=== PATIENT | male | born 1995 | race Two or more races ===

== ENCOUNTER 2020-07-20 18:23 | Emergency (ER) | payer OTHER ==
[~2020-07-20] VITALS: Ht 162.6 cm; Wt 59.0 kg
[2020-07-20] MEDS ORDERED: Tetanus/Diptheria/Pertussis IM ONE (18:45)
[2020-07-20] MEDS ORDERED: Bacitracin Oint UD TOPIC ONE (18:45)
[2020-07-20 19:35] VITALS: BP 125/83
--- NOTE | 2020-07-20 20:10 | Emergency Room Report ---
History of Present Illness General Chief Complaint: Laceration Source: Patient Present Illness HPI 25 YO male presents to the ED c/o laceration to the dorsum of the left thumb sustained 30 minutes prior to arrival. Patient reports he was cutting some cheese when he accidentally cut himself. Patient reports this was unintentional. He denies taking blood thinning medications. He is not sure when his last tetanus vaccine was. He reports his pain is 7/10 in severity. He denies paresthesias. He reports bleeding has subsided. Patient denies loss of gross motor movements of the affected extremity. He is right-hand dominant. No other aggravating or relieving factors. 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 COVID-19 Screening: Negative COVID-19 COVID-19 Testing Source: unk Patient History Past Medical History: see triage record Past Surgical History: none Pertinent Family History: none Reviewed Nursing Documentation: PMH: Agreed; PSxH: Agreed Nursing Documentation-PMH Past Medical History: No History, Except For Review of Systems All Other Systems: negative except mentioned in HPI Physical Exam Vital Signs Date Time Temp Pulse Resp B/P (MAP) Pulse Ox O2 Delivery O2 Flow Rate FiO2 07/20/20 18:34 98.1 96 20 125/83 (97) 98 Room Air Sp02 EP Interpretation: reviewed, normal General Appearance: no apparent distress, alert, GCS 15, non-toxic Head: normocephalic, atraumatic Eyes: bilateral eye normal inspection, bilateral eye PERRL ENT: hearing grossly normal, normal voice Neck: full range of motion Respiratory: lungs clear, normal breath sounds, speaking full sentences Cardiovascular #1: regular rate, rhythm, normal capillary refill Genitourinary: normal inspection Musculoskeletal: normal range of motion, gait/station normal, non-tender Neurologic: alert, motor strength/tone normal, oriented x3, sensory intact, responsive, speech normal Psychiatric: judgement/insight normal, no suicidal/homicidal ideation Skin: laceration - 1.5 cm laceration dorsum of the left thumb. No visible FB, no tendon involvement, able to fully extend finger against resistance. Lymphatic: no adenopathy Procedures Laceration/Wound Repair Laceration/Wound Repair : Consent: Verbal Wound Location: upper extremity - finger Wound Length (cm): 1 Wound Explored: clean Irrigated w/ Saline (ccs): 200 Anesthesia: 1% Lidocaine Volume Anesthetic (ccs): 2 Wound Repaired With: sutures Suture Size/Type: 4:0 Number of Sutures: 5 Layer Closure?: No Sterile Dressing Applied?: Yes Splint Applied?: Yes Type of Splint Applied: Finger SPlint Sling Applied?: No Patient Tolerated: Well Complications: None Medical Decision Making PA Attestation Dr. Perez is my supervising Physician whom patient management has been discussed with. Diagnostic Impression: Primary Impression: Laceration ER Course 25 YO male presents to the ED c/o laceration to the dorsum of the left thumb sustained 30 minutes prior to arrival. Patient reports he was cutting some cheese when he accidentally cut himself. Patient reports this was unintentional. He denies taking blood thinning medications. He is not sure when his last tetanus vaccine was. He reports his pain is 7/10 in severity. He denies paresthesias. He reports bleeding has subsided. Patient denies loss of gross motor movements of the affected extremity. He is right-hand dominant. No other aggravating or relieving factors. Ddx considered but are not limited to laceration, tendon injury, cellulitis, amputation Vital signs: are WNL, pt. is afebrile H&PE are most consistent with: 1.5 cm laceration to the dorsum of the left first digit. ORDERS: none required at this time, the diagnosis is clinical ED INTERVENTIONS: -Tetanus vaccine was administered as pt. vaccination status was unknown. - The wound was copiously irrigated with normal saline, and explored for foreign body for which no FB was found. - pt. is anesthetized with 1%lidocaine. - The wound was approximated and closed using 5 interrupted 4.0 Ethilon sutures. -Bacitracin and sterile dressing is applied. -left thumb finger splint applied by diet tech. Pt. remains neurovascularly intact. Discussed with patient: That we make every effort to approximate the laceration as best as we can so that scarring will be as cosmetically pleasing as possible with our limited cosmetic skill set in the Emergency dept. Regardless of our best efforts there will be scarring after laceration repair. The extent of scarring is unknown at this time. DISCHARGE: At this time pt. is stable for d/c to home. Will provide printed patient care instructions, and any necessary prescriptions. Care plan and follow up instructions have been discussed with the patient prior to discharge. Last Vital Signs Date Time Temp Pulse Resp B/P (MAP) Pulse Ox O2 Delivery O2 Flow Rate FiO2 07/20/20 19:35 98.1 20 125/83 98 Room Air 07/20/20 18:34 96 Status: improved Disposition: HOME, SELF-CARE Condition: Stable Scripts Acetaminophen* (TYLENOL EXTRA STRENGTH*) 500 Mg Tablet 500 MG ORAL Q6H, #20 TAB 0 Refills Prov: Mayuri Avery 07/20/20 Bacitracin (Bacitracin) 28.4 Gm Oint...g. 1 APPLIC TOPIC DAILY, #28.5 GM Prov: Mayuri Avery 07/20/20 Cephalexin* (KEFLEX*) 500 Mg Capsule 500 MG ORAL EVERY 12 HOURS for 7 Days, #14 CAP 0 Refills Prov: Mayuri Avery 07/20/20 Referrals: [facility] Departure Forms: Return to Work Return to Work Date: Jul 21, 2020 Other Restrictions: Limited use of left thumb, keep clean and dry. wear finger splint. Return to Full Activity: Jul 27, 2020 Work Restrictions: None Patient Instructions: Laceration Care, Adult Additional Instructions: Take medications as directed. Sutures are to be removed in approximately 10 to 12 days. Keep finger clean and dry. Keep finger splint on to promote proper healing. Follow up with a Primary Care Provider in 3-5 days, even if your symptoms have resolved. --Please review list of primary care clinics, if you do not already have a primary care provider Return sooner to ED if new symptoms occur, or current symptoms become worse. - Please note that this Emergency Department Report was dictated using [employer] professor technology software, occasionally this can lead to erroneous entry secondary to interpretation by the dictation equipment. Mayuri Avery Jul 20, 2020 20:09
[2020-07-20] MEDS ORDERED: CEPHALEXIN500 MG ORAL (20:11)
[2020-07-20] MEDS ORDERED: TYLENOL EXTRA500 MG ORAL ×2 (20:11)
[2020-07-20] MEDS ORDERED: BACITRACIN15 GM TOPIC (20:11)
[2020-07-20 20:25] VITALS: BP 125/83
== END 2020-07-20 20:25 | disposition home or self-care (01) ==
LOC: EMR 19:50
DX: S61.012A Laceration without foreign body of left thumb without damage to nail, initial encounter (principal); W26.0XXA Contact with knife, initial encounter; Y93.G9 Activity, other involving cooking and grilling; Y92.010 Kitchen of single-family (private) house as the place of occurrence of the external cause
CPT/HCPCS: 90471; 90715; 99282